=== PATIENT | male | born 1965 | race Caucasian/White ===

== ENCOUNTER 2016-05-07 08:12 | Emergency (ER) | payer MEDICAID, OTHER ==
[~2016-05-07] VITALS: Ht 165.1 cm; Wt 63.5 kg
[~2016-05-07 08:12] MED LIST: ASPI81CH43 PO; FERR325T PO; METH5TAB68 PO; OMEP20CA5 OR; Propranolol Hcl PO
[2016-05-07] MEDS ORDERED: KETOROLAC TROMETH 60MG/2ML VIAL IM ONE (09:45)
[2016-05-07 09:51] VITALS: BP 144/86
== END 2016-05-07 10:18 | disposition home or self-care (01) ==
LOC: ER 08:18
DX: M17.11 Unilateral primary osteoarthritis, right knee (principal); K21.9 Gastro-esophageal reflux disease without esophagitis; E07.9 Disorder of thyroid, unspecified; Z88.0 Allergy status to penicillin; Z87.442 Personal history of urinary calculi
CPT/HCPCS: 73562; 96372; 99284; J1885